=== PATIENT | male | born 1990 | race Caucasian/White ===

== ENCOUNTER 2017-11-13 16:53 | Emergency (ER) | payer BC ==
[2017-11-13] MEDS ORDERED: Zithromax 250 MG TABLET PO ONE (17:20)
--- NOTE | 2017-11-13 17:20 | ERPHSYRPT ---
- History of Present Illness Time Seen by Provider: 11/13/17 17:15 Source: patient Exam Limitations: no limitations Patient Subjective Stated Complaint: cough and congestion x 2 days with one episode of vomiting today from coughing. 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 pt arrives p/w/d resp easy. BBS CTA Physician History: 26 y/o male comes to the ER with complaints of cough and congestion for the last 4 days. Pt has been exposed to chickens and sewage material. Pt admits that the cough is productive and has been using OTC meds with relief of cough. Pt denies any fever, chills, chest pain, shortness of breath or wheezing. Timing/Duration: day(s) Cough Quality/Degree: mild Possible Cause: no prior episodes Modifying Factors: Improves With: nothing Associated Symptoms: denies symptoms - Review of Systems Constitutional: No Fever, No Chills Eyes: No Symptoms Ears, Nose, & Throat: No Symptoms Respiratory: Cough, No Dyspnea Cardiac: No Chest Pain, No Edema, No Syncope Abdominal/Gastrointestinal: No Abdominal Pain, No Nausea, No Vomiting, No Diarrhea Genitourinary Symptoms: No Dysuria Musculoskeletal: No Back Pain, No Neck Pain Skin: No Rash Neurological: No Dizziness, No Focal Weakness, No Sensory Changes Psychological: No Symptoms Endocrine: No Symptoms All Other Systems: Reviewed and Negative - Past Medical History Pertinent Past Medical History: No - Past Surgical History Past Surgical History: Yes - Social History Smoking Status: Never smoker Drug Use: none - Nursing Vital Signs Nursing Vital Signs: Initial Vital Signs Temperature 99.2 F 11/13/17 17:08 Pulse Rate 77 11/13/17 17:08 Respiratory Rate 16 11/13/17 17:08 Blood Pressure 130/69 11/13/17 17:08 O2 Sat by Pulse Oximetry 97 11/13/17 17:08 - Physical Exam General Appearance: no apparent distress, alert Eye Exam: PERRL/EOMI, eyes nml inspection Ears, Nose, Throat Exam: normal ENT inspection, TMs normal, pharynx normal, moist mucous membranes Neck Exam: normal inspection, non-tender, supple, full range of motion Respiratory Exam: normal breath sounds, lungs clear, No respiratory distress Cardiovascular Exam: regular rate/rhythm, normal heart sounds Gastrointestinal/Abdomen Exam: soft, No tenderness Back Exam: normal inspection, No CVA tenderness, No vertebral tenderness Extremity Exam: normal inspection, normal range of motion Neurologic Exam: alert, oriented x 3, cooperative, normal mood/affect, sensation nml, No motor deficits Skin Exam: normal color, warm, dry, No rash Lymphatic Exam: No adenopathy SpO2: 97 Oxygen Delivery: Room Air - Course Nursing assessment & vital signs reviewed: Yes Ordered Tests: Medication Summary Discontinued Medications Generic Name Dose Route Start Last Admin Trade Name Freq PRN Reason Stop Dose Admin Azithromycin 500 mg 11/13/17 17:20 Zithromax 250 Mg Tablet PO 11/13/17 17:21 STAT ONE - Progress Progress: improved Progress Note: 11/13/17 17:23 Pt has symptoms related to bronchitis. Pt will be started on azithromycin and tessalon perles. - Departure Time of Disposition: 17:23 Departure Disposition: Home Clinical Impression: Bronchitis Condition: Stable Critical Care Time: No Instructions: Acute Bronchitis, Adult (DC) Additional Instructions: Return to the ER if you should have worsening cough, congestion, shortness of breath, fever or chills. Finish the antibiotics until completion. Prescriptions: Azithromycin 250 mg [Zithromax 250 MG TABLET] 250 mg PO DAILY #4 tablet Benzonatate [Tessalon Perle] 100 mg PO QID PRN #20 capsule PRN Reason: Cough
[2017-11-13] MEDS ORDERED: Zithromax 250 MG TABLET ONE (17:27)
[2017-11-13 17:41] VITALS: BP 124/82; PULSE 83; O2SAT 96
== END 2017-11-13 17:48 | disposition home or self-care (01) ==
LOC: ED 16:53
DX: J40 Bronchitis, not specified as acute or chronic (principal)
CPT/HCPCS: 99283; A9270-GY